=== PATIENT | female | born 1960 | race Caucasian/White ===

== ENCOUNTER 2017-02-04 08:31 | Day surgery (SDC) | payer OTHER ==
[2017-02-04] MEDS ORDERED: Lactated Ringer's 500 ML IV ONE (10:55)
[2017-02-04] MEDS ORDERED: Midazolam 2 MG/2 ML VIAL ONE (11:29)
[2017-02-04] MEDS ORDERED: Propofol 10 mg/ml Inj (20 ML) ONE (11:29)
[2017-02-04] MEDS ORDERED: Lidocaine 2% MPF (5 ml) Inj ONE (11:30)
[2017-02-04 12:23] VITALS: BP 91/48; PULSE 53; RESP 15; TEMP 96.8; O2SAT 100
== END 2017-02-04 12:31 | disposition home or self-care (01) ==
LOC: H.ENDO 08:31
PROVIDERS: ATTEND Internal Medicine Gastroenterology
DX: Z12.11 Encounter for screening for malignant neoplasm of colon (principal); K57.30 Diverticulosis of large intestine without perforation or abscess without bleeding; K64.8 Other hemorrhoids; Z90.49 Acquired absence of other specified parts of digestive tract; K59.00 Constipation, unspecified
CPT/HCPCS: 45378; J2250; J2704; J7120

== ENCOUNTER 2018-07-16 09:51 | Emergency (ER) | payer SELFPAY ==
[2018-07-16 10:10] VITALS: PULSE 90; RESP 18; TEMP 98.1; O2SAT 100
--- NOTE | 2018-07-16 11:22 | ED PDOC ---
Upper Extremity Pain/Injury Time Seen by Provider: 07/16/18 10:20 Chief Complaint (Nursing): Upper Extremity Problem/Injury Chief Complaint (Provider): Left hand pain History Per: Patient History/Exam Limitations: no limitations Onset/Duration Of Symptoms: Mins Current Symptoms Are (Timing): Still Present Quality: "Pain" Additional History Per: Patient Additional Complaint(s): 58yo female, otherwise well with no past medical history, comes to ER reporting pain to her left hand. Patient states prior to arrival, she slammed her thumb in the car door and subsequently had bleeding from the finger. She has been unable to move the tip of her finger due to pain. Otherwise, no additional medical complaints. NKDA PMD: Rogelio Avery Past Medical History Reviewed: Historical Data, Nursing Documentation, Vital Signs Vital Signs: Last Vital Signs Temp 98.1 F 07/16/18 10:07 Pulse 90 07/16/18 10:07 Resp 18 07/16/18 10:07 BP 152/78 H 07/16/18 10:07 Pulse Ox 100 07/16/18 10:07 - Medical History PMH: No Chronic Diseases - Surgical History Surgical History: Cholecystectomy - Family History Family History: States: No Known Family Hx - Home Medications Home Medications: Ambulatory Orders Medication Instructions Recorded Ciprofloxacin HCl [Cipro] 500 mg PO BID #14 tablet 07/16/18 oxyCODONE/Acetaminophen [Percocet 1 ea PO Q4 #20 tab 07/16/18 5/325 mg Tab] - Allergies Allergies/Adverse Reactions: Allergies Allergy/AdvReac Type Severity Reaction Status Date / Time No Known Allergies Allergy Verified 07/16/18 10:07 Review of Systems ROS Statement: Except As Marked, All Systems Reviewed And Found Negative Musculoskeletal: Positive for: Hand Pain (left thumb pain) Physical Exam - Reviewed Nursing Documentation Reviewed: Yes Vital Signs Reviewed: Yes - Physical Exam Appears: Positive for: Uncomfortable Head Exam: Positive for: NORMAL INSPECTION Skin: Positive for: Normal Color Cardiovascular/Chest: Negative for: Tachycardia Respiratory: Negative for: Respiratory Distress Pulses-Radial (L): 2+ Pulses-Radial (R): 2+ Extremity: Positive for: Deformity (wound cleaned and bone visible through fingernail of left 1st digit; open fracture noted). Negative for: Normal ROM (+ unable to assess ROM of left 1st digit due to pain) Neurological/Psych: Positive for: Awake, Alert. Negative for: Motor/Sensory Deficits - ECG O2 Sat by Pulse Oximetry: 100 (RA) Pulse Ox Interpretation: Normal Medical Decision Making Medical Decision Making: Most likely open fracture of left 1st digit plan: -- XR left hand -- Morphine 4mg IM for pain -- Hand surgery consult [address] Simmons who recommends laceration repair and for patient to follow up outpatient IV Antibiotics initiated 1300 Laceration repaired, see procedure note Patient instructed on strict follow up with Dr. Simmons, and expresses understanding. 1441 Patient placed in splint, post application exam indicates normal neurovascular exam Patient again informed of follow up with Dr. Simmons and expresses understanding Stable for d/c home ScribeAttestation: Documented byMaria Dolores Tate, acting as a scribe for Isabel Millan MD. Provider ScribeAttestation: All medical record entries made by the Scribe were at my direction and personally dictated by me. I have reviewed the chart and agree that the record accurately reflects my personal performance of the history, physical exam, medical decision making, and the department course for this patient. I have also personally directed, reviewed, and agree with the discharge instructions and disposition. Procedures - Time-Out Type of Procedure: Laceration repair Site of Procedure: Left first digit Correct Patient: Yes Correct Procedure: Yes Physician Name: Isabel Millan - Laceration/Wound Repair Left first digit Anesthesia: 1% Lidocaine Volume Anesthetic (ccs): 6 (4 cc's in left thenar eminence, 2 cc's 1cm below snuffbox) Wound Repaired With: Sutures Suture Size/Type: 4:0 (monocryl) Number of Sutures: 3 Wound Complexity: Complex (open fracture distal tip of left 1st digit) Progress: Laceration repaired on lateral side with good skin approximation Nailbed with laceration and exposed bone; wet to dry dressing applied Patient tolerated procedure well. Disposition - Clinical Impression Clinical Impression: Fracture of thumb - Disposition Referrals: Sherman Simmons MD [Medical Doctor] - Disposition: Routine/Home Disposition Time: 14:43 Condition: IMPROVED Additional Instructions: Follow up with hand surgeon tomorrow. Take Percocet every 4 hours as needed for pain. Take antibiotics as prescribed. Return to the emergency department immediately if you develop severe pain, swelling, pus/drainage, or are unable to see the surgeon. Prescriptions: Ciprofloxacin HCl [Cipro] 500 mg PO BID #14 tablet oxyCODONE/Acetaminophen [Percocet 5/325 mg Tab] 1 ea PO Q4 #20 tab Instructions: Finger Fracture (DC) Forms: [employer] (Kiswahili) Print Language: [place] CITIZEN
[2018-07-16] MEDS ORDERED: Lidocaine 1% Inj (20ml) IJ ONE (11:33)
[2018-07-16] MEDS ORDERED: Morphine 4 MG/ML VIAL IVP STA (11:33)
[2018-07-16] MEDS ORDERED: Lidocaine Hydrochloride 1% 10 ML ONE (11:36)
[2018-07-16] MEDS ORDERED: Povidone Iodine Topical 10% Sol ONE (11:36)
--- NOTE | 2018-07-16 11:43 | RAD ---
Date of service: 07/16/2018 PROCEDURE: Left Thumb radiographs. HISTORY: slammed in car door, fracture, nail avulsion COMPARISON: None. TECHNIQUE: AP radiograph of the left hand, as well as spot oblique and lateral images of thumb were obtained. 4 views obtained. FINDINGS: LEFT THUMB: There is a comminuted fracture of the tuft of the distal phalanx left thumb with major fracture fragment displaced some 3-4 mm distal to the mid portion distal phalanx left thumb. Tissue loss is difficult to exclude although unusual shape of the distal thumb soft tissues may be normal. Diffuse osteopenia suggests osteoporosis. JOINTS: There is diffuse joint space narrowing seen throughout the joints of the left hand in its entirety, with articular cortical sclerosis noted particularly dense at the distal interphalangeal joint left index finger compatible with relatively advanced osteoarthritis. The interphalangeal joints of the worst affected throughout the left hand. SOFT TISSUES: See discussion above. OTHER FINDINGS: None. IMPRESSION: 1. Comminuted fracture of the tuft of the distal phalanx left thumb major fracture fragment distracted some 3-4 mm distal to the distal left phalanx. No dislocation or subluxation. No definite articular involvement. Soft tissue injury not excluded though suspected based on radiographic images. 2. Advanced osteoarthritis throughout the left hip, particularly left index finger.
[2018-07-16] MEDS ORDERED: Ciprofloxacin 400mg/200ml D5W 400 MG/200 ML BAG IVPB STA (12:19)
[2018-07-16] MEDS ORDERED: Ciprofloxacin 400mg/200ml D5W 400 MG/200 ML BAG IVPB ONE (13:04)
[2018-07-16 16:20] VITALS: BP 142/42
== END 2018-07-16 15:25 | disposition home or self-care (01) ==
LOC: H.ER 09:51
DX: S62.502A Fracture of unspecified phalanx of left thumb, initial encounter for closed fracture (principal); S61.012A Laceration without foreign body of left thumb without damage to nail, initial encounter; W23.0XXA Caught, crushed, jammed, or pinched between moving objects, initial encounter; Y92.89 Other specified places as the place of occurrence of the external cause
CPT/HCPCS: 13132; 73140; 96372; 96374; 96375; 96376; 99284; J0744; J2270